=== PATIENT | female | born 1960 | race Caucasian/White ===

== ENCOUNTER 2017-05-04 06:56 | Day surgery (SDC) | payer OTHER ==
[2017-05-03 11:19] VITALS: BMI 25.0
[~2017-05-04 06:56] MED LIST: LACTATED RINGERS 1,000 ML IV SCH; LIDOCAINE 1% 20 ML VIAL (10MG/ML) FOR IV START INTRADERMA PRN
[2017-05-04 07:14] VITALS: TEMP 97.6
[2017-05-04] MEDS ORDERED: LIDOCAINE 1% INJ 10MG/ML (20 ML MDV) ONE (07:43)
[2017-05-04] MEDS ORDERED: GLYCOPYRROLATE 0.2 MG/ML 2 ML VIAL ONE (07:43)
[2017-05-04] MEDS ORDERED: PROPOFOL 10 MG/ML 20 ML VIAL IV ONE (07:43)
--- NOTE | 2017-05-04 08:02 | P.PCN ---
Date of Procedure: 05/04/17 Procedure(s) Performed: Brief history: Patient is a pleasant 57-year-old white female, scheduled for an elective upper endoscopy as well as colonoscopy as a part of evaluation of intermittent abdominal pain and rectal bleeding for the last 2 weeks' duration. Procedure performed: Esophagogastroduodenoscopy with biopsy Colonoscopy Preoperative diagnosis: Abdominal pain Rectal bleeding Anesthesia: [facility] [place] Procedure: After informed consent was obtained from the patient was brought into the endoscopy unit and IV sedation was administered by anesthesia under continuous monitoring. Initially upper endoscopy was done. The Olympus GF 160 video endoscope was inserted inserted into the mouth and esophagus intubated without any difficulty and was gradually advanced into the stomach and duodenum and carefully examined. The bulb had a few erosions and second part of the duodenum appeared normal. The scope was then withdrawn into the stomach adequately insufflated with air and upon careful examination the antrum had mild gastritis and biopsies were done from this area. The body, cardia and fundus appeared normal. The scope was then withdrawn into the esophagus. The GE junction was located at 40 cm to the incisors. It appeared regular with no erythema erosions or ulcerations. Rest of the esophagus appeared normal. Patient tolerated the procedure well. At this time the patient continued to remain sedation. Initial digital rectal examination was normal. Olympus CF 160 video colonoscope was then inserted into the rectum and gradually advanced to the cecum without any difficulty. Careful examination was performed as the scope was gradually being withdrawn. The prep was excellent. The cecum, ascending colon, transverse colon, descending colon, sigmoid colon and rectum appeared normal. Retroflexion was performed in the rectum andsmall internal hemorrhoidsre noted. Patient tolerated the procedure well. Impression: 1. Upper endoscopy revealed mild antral gastritis and duodenitis. 2. Colonoscopy revealed small internal hemorrhoids, but no evidence of colitis or colorectal neoplasia. Recommendations: Findings of this examination were discussed with the patient as well as her family. She was advised to be a high-fiber diet and take fiber supplements a regular basis. She can have a repeat screening colonoscopy in 10 years.
[2017-05-04 08:16] VITALS: BP 112/62; PULSE 77; RESP 15
== END 2017-05-04 09:10 | disposition home or self-care (01) ==
LOC: ORWHC2ENDO 06:56
PROVIDERS: ATTEND Internal Medicine Gastroenterology
DX: K21.9 Gastro-esophageal reflux disease without esophagitis (principal); K29.80 Duodenitis without bleeding; K64.8 Other hemorrhoids
CPT/HCPCS: 88305; 88342; 45378; 43239; J2001; J2704

== ENCOUNTER 2020-07-18 11:11 | Day surgery (SDC) | payer OTHER ==
[2020-07-16 15:58] VITALS: BMI 24.0
--- NOTE | 2020-07-17 17:36 | P.HPOB ---
History of Present Illness H&P Date: 07/17/20 Chief Complaint: Post-menopausal bleeding, endometrial thickening This is a 60 y.o. female, 2, para 2, who presents for dilatation and curettage with hysteroscopy for postmenopausal bleeding and endometrial thickening. She complained of spotting only with wiping that gradually began about 6 years ago. Symptoms occur a couple times a year. She also has some cramping but not associated with the bleeding. She had a normal pap smear recently. Pelvic ultrasound showed uterus measuring 6.6 x 2.8 x 4.4 cm with endometrium 7.7 mm. Neither ovary was visualized. OB Hx: . History of 2 vaginal deliveries. 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 History of endometriosis. Social Hx: . Works as a [employer]. Review of Systems Constitutional: Denies chills, Denies fever Eyes: denies blurred vision, denies pain Ears, nose, mouth and throat: Denies headache, Denies sore throat Cardiovascular: Denies chest pain, Denies shortness of breath Respiratory: Denies cough Gastrointestinal: Denies abdominal pain, Denies diarrhea, Denies nausea, Denies vomiting Genitourinary: Reports abnormal vaginal bleeding, Reports dyspareunia, Reports stress incontinence Menstruation: Reports postmenopausal Musculoskeletal: Reports low back pain, Reports myalgias Integumentary: Denies pruritus, Denies rash Neurological: Denies numbness, Denies weakness Psychiatric: Reports change in libido Hematologic/Lymphatic: Reports easy bruising Past Medical History Past Medical History: No Reported History Additional Past Medical History / Comment(s): pt hs been having blood in stool since 04/12/17 History of Any Multi-Drug Resistant Organisms: None Reported Past Surgical History: Appendectomy, Breast Surgery, Heart Catheterization (04/2020-[facility]), Tubal Ligation Additional Past Surgical History / Comment(s): lt breast biopsy -benign. rt axillary lumpectomy x 3-benign. colonoscopy Past Anesthesia/Blood Transfusion Reactions: No Reported Reaction, Family History of Problems w/ Anesthesia Additional Past Anesthesia/Blood Transfusion Reaction / Comment(s): mom ponv Past Psychological History: No Psychological Hx Reported Smoking Status: Never smoker Past Alcohol Use History: Occasional Past Drug Use History: None Reported - Past Family History Mother Family Medical History: No Reported History Medications and Allergies Home Medications Medication Instructions Recorded Confirmed Type Biotin 5,000 mcg PO DAILY 12/09/20 12/09/20 History Cholecalciferol [Vitamin D3 (25 1,000 unit PO DAILY 07/16/20 07/16/20 History Mcg = 1000 Iu)] Ferrous Sulfate [Feosol] 325 mg PO DAILY 07/16/20 07/18/20 History Multivitamin [Multivitamins Adult 1 each PO DAILY 07/16/20 07/16/20 History Gummies] Allergies Allergy/AdvReac Type Severity Reaction Status Date / Time No Known Allergies Allergy Verified 07/18/20 11:56 Exam Osteopathic Statement: *. No significant issues noted on an osteopathic structural exam other than those noted in the History and Physical/Consult. HEENT: within normal limits Heart: regular rate and rhythm Lungs: clear to auscultation bilaterally Abdomen: soft, non-tender. Pelvic: uterus anteverted, non-tender with 1st degree uterine prolapse and no adnexal masses or tenderness. 2nd degree cystocele and rectocele noted. Extremities: neg. Letty's. Assessment and Plan (1) Postmenopausal bleeding Current Visit: No Status: Acute Code(s): N95.0 - POSTMENOPAUSAL BLEEDING SNOMED Code(s): 30646623 (2) Endometrial thickening on ultrasound Current Visit: No Status: Acute Code(s): R93.89 - ABNORMAL FINDINGS ON DX IMAGING OF OTH BODY STRUCTURES SNOMED Code(s): 346398653 Plan: Proceed with dilatation and curettage with hysteroscopy. I have discussed the risks, benefits, and alternative therapies for the above- mentioned procedure and for both sedation/anesthesia as well as necessary blood products administration, if indicated, as they pertain to this patient. The patient has indicated her understanding and acceptance of the risks and pr ocedures discussed.
[~2020-07-18 11:11] MED LIST changes: +DEXAMETHASONE SOD PHOSPHATE 4 MG/ML 1 ML VIAL IV ONE; +HYDROmorphone 0.5 MG/0.5 ML SYRINGE IVP PRN; -LIDOCAINE 1% 20 ML VIAL (10MG/ML) FOR IV START INTRADERMA PRN; +MIDAZOLAM 2 MG/2 ML VIAL IV PRN; +ONDANSETRON 4 MG/2 ML VIAL IVP ONE; +Pre Op ABX Message 1 EACH MISC MISCELLANE ONE; +SCOPOLAMINE 1.5MG/72HR PATCH TRANSDERM ONE
[2020-07-18] MEDS ORDERED: KETOROLAC 15 MG/ML 1 ML VIAL ONE (12:25)
[2020-07-18] MEDS ORDERED: fentaNYL (PF) 50 MCG/ML 2 ML AMP ONE (12:25)
[2020-07-18] MEDS ORDERED: MIDAZOLAM 2 MG/2 ML VIAL ONE (12:25)
[2020-07-18] MEDS ORDERED: PROPOFOL 10 MG/ML 20 ML VIAL IV ONE (12:25)
[2020-07-18] MEDS ORDERED: LIDOCAINE 1% INJ 10MG/ML (20 ML MDV) ONE (12:25)
--- NOTE | 2020-07-18 12:54 | P.OP ---
Date of Procedure: 07/18/20 Preoperative Diagnosis: postmenopausal bleeding Endometrial thickening Postoperative Diagnosis: same Procedure(s) Performed: dilation and curettage with hysteroscopy Anesthesia: other (mask general) Surgeon: Kristin Mitchell Estimated Blood Loss (ml): 3 Pathology: other (Endometrial curettings) Condition: stable Disposition: same day Indications for Procedure: This is a 60 y.o. female, 2, para 2, who presents for dilatation and curettage with hysteroscopy for postmenopausal bleeding and endometrial thickening. She complained of spotting only with wiping that gradually began about 6 years ago. Symptoms occur a couple times a year. She also has some cramping but not associated with the bleeding. She had a normal pap smear recently. Pelvic ultrasound showed uterus measuring 6.6 x 2.8 x 4.4 cm with endometrium 7.7 mm. Neither ovary was visualized. Operative Findings: uterus is small, anteverted, with no adnexal masses palpated. Grade 2 uterine prolapse is noted along with a cystocele. Upon hysteroscopy, a area atrophic pattern was noted. The right tubal ostia is visualized. The left tubal ostia is not visualized. There is a fairly large polyp originating from the left side of the uterus. Description of Procedure: the patient is taken to the operating room where she is placed in the dorsal lithotomy position. She is prepped and draped in the normal sterile fashion. Her bladder is drained with a catheter and then removed. Examination is under anesthesia. Uterus is found to be small, anteverted, with no adnexal masses palpated. There is grade 2 uterine prolapse noted. A weighted speculum was placed in the patient's vagina and a right angle retractor is used to visualize the cervix. The anterior lip of the cervix is grasped with a single-tooth tenaculum. Cervical os is noted to be stenotic. A hemostat was used to open up the cervix and then the uterus is sounded to 6-1/2 cm. Cervix is gently dilated with Wilson dilators until a hysteroscope could be passed. Hysteroscopy is pe rformed using normal saline. The above noted findings are made and pictures are taken. Next the cervix is gently dilated further and a polyp forceps was introduced. A fairly large polyp was removed. Next a medium-size sharp curet was introduced and sharp curettage was performed until a gritty texture was noted. No further tissue is obtained. Next the single-tooth tenaculum is removed and no bleeding is noted. All instruments are removed from the vagina and the specimen is sent to pathology labeled endometrial curettings. All sponge and needle counts are correct and the patient is taken to recovery room in stable condition.of note the patient did have some redness on her skin where the Betadine had been applied for prep. This was washed off with water prior to taking her to the recovery room.
[2020-07-18 13:06] VITALS: TEMP 97
[2020-07-18 13:17] VITALS: RESP 16
[2020-07-18 14:13] VITALS: BP 110/81; PULSE 60
== END 2020-07-18 14:54 | disposition home or self-care (01) ==
LOC: OR 11:11
PROVIDERS: ATTEND Obstetrics & Gynecology
DX: N84.0 Polyp of corpus uteri (principal); N95.0 Postmenopausal bleeding; R93.89 Abnormal findings on diagnostic imaging of other specified body structures; N81.2 Incomplete uterovaginal prolapse; K92.1 Melena; Z98.51 Tubal ligation status; Z98.890 Other specified postprocedural states
CPT/HCPCS: 88305; 58558; J2250; J1100; J2405; J2001; J3010; J1885; J2704

== ENCOUNTER → 2021-04-24 | Outpatient (CLI) | payer OTHER ==
[2021-04-24 10:01] VITALS: BP 123/77; PULSE 59; RESP 16; TEMP 98.4
--- NOTE | 2021-04-24 10:45 | P.GSHP ---
History of Present Illness H&P Date: 04/24/21 Chief Complaint: lump in left breast Radhika is a 61 year old white female seen in consultation for DR. Post regarding a lump in her left breast. It has been there for about 6 months with no change in size. It is "lightly irritating" at times if she bumps it. [place] [address] sonographic evidence of anything of concern was noted and a diagnostic mammogram [place]. [place] [address] and again no mammographic evidence of any malignancy was noted. She had a prior left breast biopsy about 20 years ago which was benign. She is due for a right breast mammogram. She is not complaining of any nipple discharge or changes. She is not complaining of any trauma or infection. The spot that she feels of any concern today is at 5 oclock in the left breast. Caffiene: 1-2 pills/day of caffeine nicotine: never smoker chocolate: several times/week Family History: mother: pancreatic cancer paternal aunt: breast cancer in 30's of this paternal niece: ? lymphoma as a child Hormonal History: menarche: 11 , breast fed: yes, age at first : 25 menopause: 50's BCP: 10 years hormones: none Red Darden: as a hormonal supplement about 25 years Surgical History: tubaligation appy breast surgery lump removed under left arm; fatty tissue heart cath Medical history: DJD in back Social History: Nicotine: Never smoker Alcohol:occasional durgs: none - Constitutional Constitutional: Denies chills, Denies fever - EENT Comment: getting a cataract Eyes: denies blurred vision, denies pain Ears: deny: decreased hearing, tinnitus Ears, nose, mouth and throat: Denies headache, Denies sore throat - Breasts Breasts: bilateral: as per HPI - Cardiovascular Cardiovascular: Reports shortness of breath - Respiratory Respiratory: Denies cough, Denies 7 - Gastrointestinal Gastrointestinal: Denies abdominal pain, Denies diarrhea, Denies nausea, Denies vomiting - Genitourinary (Female) Genitourinary: Denies dysuria, Denies hematuria - Menstruation Menstruation: Reports postmenopausal - Musculoskeletal Comment: DJD disease back pain Musculoskeletal: Reports myalgias - Integumentary Integumentary: Denies pruritus, Denies rash - Neurological Neurological: Denies numbness, Denies weakness - Psychiatric Psychiatric: Denies anxiety, Denies depression - Endocrine Endocrine: Reports fatigue, Denies weight change - Hematologic/Lymphatic Comment: none - Allergic/Immunologic Allergic/Immunologic: Reports seasonal allergies Past Medical History Past Medical History: No Reported History Additional Past Medical History / Comment(s): pt hs been having blood in stool since 04/12/17 History of Any Multi-Drug Resistant Organisms: None Reported Past Surgical History: Appendectomy, Breast Surgery, Heart Catheterization, Tubal Ligation Additional Past Surgical History / Comment(s): lt breast biopsy -benign. rt axillary lumpectomy x 3-benign. colonoscopy Past Anesthesia/Blood Transfusion Reactions: No Reported Reaction, Family History of Problems w/ Anesthesia Additional Past Anesthesia/Blood Transfusion Reaction / Comment(s): mom ponv Past Psychological History: No Psychological Hx Reported Smoking Status: Never smoker Past Alcohol Use History: Occasional Past Drug Use History: None Reported - Past Family History Mother Family Medical History: No Reported History Medications and Allergies Home Medications Medication Instructions Recorded Confirmed Type Biotin [Biotin Disolve] 5,000 mcg PO DAILY 07/16/20 04/24/21 History Cholecalciferol [Vitamin D3 (25 1,000 unit PO BID 07/16/20 04/24/21 History Mcg = 1000 Iu)] Ferrous Sulfate [Feosol] 65 mg PO DAILY 07/16/20 04/24/21 History Multivitamin [Multivitamins Adult 1 each PO DAILY 07/16/20 04/24/21 History Gummies] Ascorbic Acid [Vitamin C] 500 mg PO BID 04/24/21 04/24/21 History Calcium Carb/Mag Ox/Zinc Sulf 1 each PO BID 04/24/21 04/24/21 History [Ntb-Kki-Cpgj 334-134-5 mg Tab] Cinnamon Bark [Cinnamon] 500 mg PO BID 04/24/21 04/24/21 History Red Darden 375 mg PO DAILY 04/24/21 04/24/21 History Total Cleansing Uric Acid 1 tab PO DAILY 04/24/21 04/24/21 History Allergies Allergy/AdvReac Type Severity Reaction Status Date / Time No Known Allergies Allergy Verified 04/24/21 10:01 Surgical - Exam Vital Signs Temp Pulse Resp BP Pulse Ox 98.4 F 59 L 16 123/77 99 04/24/21 09:58 04/24/21 09:58 04/24/21 09:58 04/24/21 09:58 04/24/21 09:58 BMI 25.6 - General well developed, well nourished, no distress - Eyes normal ocular movement - Neck trachea midline - Respiratory normal respiratory effort, clear to auscultation - Cardiovascular Rhythm: regular Heart Sounds: normal: S1, S2 - Abdomen Abdomen: soft, non tender, no guarding, no rigid, no rebound - Integumentary normal turgor - Neurologic no disoriented, no combative - Musculoskeletal normal gait - Psychiatric oriented to time, oriented to person, oriented to place, speech is normal Breast Exam: BRA: 38B inspection: Well-healed scar left breast from prior biopsy, grade 2 ptosis bilateral Palpation: Right breast: Multiple positional exam fibrocystic changes, no dominant masses or nodules of concern Right axilla: No adenopathy of concern Left breast: Well-healed scar from prior biopsy, there is some nodularity at the border of lesion was prior removed which is consistent with scar tissue no dominant masses or nodules of concern Left axilla: No adenopathy of concern Results Left breast mammogram and ultrasound results reviewed Assessment and Plan Assessment: Impression: 1. Palpable change in left breast the patient has noted, appears to be consistent with scar tissue from prior left breast lumpectomy 2. Recent left breast mammogram and ultrasound no specific lesions of concern 3. Patient is not had a right breast mammogram in approximately a year and a half 4. Degenerative disc disease with back pain Plan: 1. Right breast mammogram 2. Patient is given the option of an FNA of the area of concern in the left breast versus watchful waiting 3. Obtain pathology report from prior left breast biopsy 4. Repeat ultrasound of the left breast in 6 months CC: Dr. Post
== END ==
LOC: WWCWWP 09:48
PROVIDERS: ATTEND Surgery
DX: N64.89 Other specified disorders of breast (principal); M51.36 Other intervertebral disc degeneration, lumbar region

== ENCOUNTER 2022-12-31 10:07 | Day surgery (SDC) | payer MEDICAID ==
[2022-12-29 12:16] VITALS: BMI 24.9
[~2022-12-31 10:07] MED LIST changes: -DEXAMETHASONE SOD PHOSPHATE 4 MG/ML 1 ML VIAL IV ONE; -HYDROmorphone 0.5 MG/0.5 ML SYRINGE IVP PRN; -MIDAZOLAM 2 MG/2 ML VIAL IV PRN; -ONDANSETRON 4 MG/2 ML VIAL IVP ONE; -Pre Op ABX Message 1 EACH MISC MISCELLANE ONE; -SCOPOLAMINE 1.5MG/72HR PATCH TRANSDERM ONE
[2022-12-31 10:35] VITALS: TEMP 97.1
[2022-12-31] MEDS ORDERED: PROPOFOL 10 MG/ML 20 ML VIAL IV ONE (10:56)
--- NOTE | 2022-12-31 11:19 | P.PCN ---
Date of Procedure: 12/31/22 Procedure(s) Performed: BRIEF HISTORY: Patient is a 62-year-old pleasant female scheduled for an elective colonoscopy as a part of evaluation change in bowel habits for the last 6 months duration. PROCEDURE PERFORMED: Colonoscopy. PREOPERATIVE DIAGNOSIS: Change in bowel habits. IV sedation per Anesthesia. PROCEDURE: After informed consent was obtained, the patient, was brought into the endoscopy unit. IV sedation was administered by Anesthesia under continuous monitoring. Digital rectal examination was normal. Initially the Olympus CF-160 flexible video colonoscope was then inserted in the rectum, gradually advanced into the cecum without any difficulty. Careful examination was performed as the scope was gradually being withdrawn. Ileocecal valve and the appendiceal orifice were visualized and appeared normal. Prep was excellent. Mucosa of the cecum, ascending colon, transverse colon, descending colon, sigmoid colon, and rectum appeared normal. Scattered sigmoid diverticulosis Retroflexion was performed in the rectum and no lesions were seen. The patient tolerated the procedure well. IMPRESSION: Normal-appearing colon from rectum to cecum with no evidence of colorectal neoplasia. Scattered sigmoid diverticulosis. RECOMMENDATIONS: Findings of this examination were discussed with the patient as well as a family. She was advised to have a repeat screening colonoscopy in 10 years..
[2022-12-31 11:30] VITALS: RESP 16
[2022-12-31 11:50] VITALS: BP 110/79; PULSE 70
== END 2022-12-31 11:45 | disposition home or self-care (01) ==
LOC: ORWHC2ENDO 10:07
PROVIDERS: ATTEND Internal Medicine Gastroenterology
DX: K57.30 Diverticulosis of large intestine without perforation or abscess without bleeding (principal); Z90.49 Acquired absence of other specified parts of digestive tract; Z98.51 Tubal ligation status; Z98.890 Other specified postprocedural states; Z79.899 Other long term (current) drug therapy
CPT/HCPCS: 45378; J2704

== ENCOUNTER → 2023-08-17 | Outpatient (CLI) | payer MEDICAID ==
--- NOTE | 2023-08-24 18:05 | CT ---
EXAMINATION TYPE: CT soft tissue neck w con CT DLP: 428.3 mGycm, Automated exposure control for dose reduction was used. DATE OF EXAM: 08/17/2023 10:27 AM COMPARISON: None INDICATION: Patient age:Female; 63 years old; Reason for study: R05.9 COUGH, UNSPECIFIED; PHH. COMPARISON: None. TECHNIQUE: Standard enhanced CT of the neck following intravenous administration of 100 cc of Isovue 300. Axial sections with coronal and sagittal reformats were obtained. One or more CT dose reduction strategies were utilized during this examination. Total DLP administered was 428.3 mGycm. FINDINGS: Head: The orbits, paranasal sinuses and visualized portions of the brain are grossly unremarkable. Suprahyoid Neck: Dental work artifact causes some limited evaluation of the oral cavity and oropharyn x. The oropharynx, oral cavity, parapharyngeal and retropharyngeal spaces appear clear and symmetric. The nasopharynx is patent. There is mild nasal septal deviation towards the left anteriorly and to t he midportion. Infrahyoid Neck: The larynx, hypopharynx, and supraglottic area are clear and symmetric. Epiglottis is not thickened. Parotid Glands: Unremarkable. Submandibular Glands: Unremarkable. Lymph Nodes: Multiple nonenlarged lymph nodes are identified bilaterally along the anterior and poste rior chains. No bulky or necrotic adenopathy. Vascular Structures: Arterial structures are patent without significant atherosclerotic disease or he modynamically significant stenosis. Major venous structures are unremarkable. Musculoskeletal: No acute osseous pathology. Mild degenerative changes of the cervical spine with mil d canal and neural foraminal stenoses at the C5-6 and C6-C7 levels. Straightening and slight reversal of the normal cervical lordosis and trace anterolisthesis C4 on C5, appears degenerative. Thoracic Inlet: Included lung apices show no acute infiltrate or pneumothorax. Mild chronic senescent changes. Airway is patent. Thyroid: Unremarkable Other Findings: Radiodense marker placed over the right anterior neck, presumably the site of reporte d abnormality, overlies the SCM which appears normal and symmetric compared to the contralateral side . No mass, adenopathy or other abnormality is seen in this region. IMPRESSION: 1. No evidence of mass or adenopathy in the neck. 2. Airway is patent.
== END | disposition home or self-care (01) ==
LOC: RADCTMAIN 09:52
PROVIDERS: ATTEND Otolaryngology
DX: R13.10 Dysphagia, unspecified (principal); R05.9 Cough, unspecified
CPT/HCPCS: 70491; Q9967

== ENCOUNTER → 2023-08-24 | Outpatient (CLI) | payer MEDICAID ==
--- NOTE | 2023-08-24 11:14 | FL ---
EXAMINATION TYPE: FL barium swallow DATE OF EXAM: 08/24/2023 CLINICAL HISTORY: Patient feels lump in throat when swallowing TECHNIQUE: A double contrast esophagram is performed utilizing air and barium. A total of 39 second s of fluoroscopic time was utilized during procedure and 27 images obtained. Total dose area product (DAP) in uGy*m?, mGy*cm? (or similar) No DAP report. COMPARISON: None FINDINGS: The esophagus shows normal motility and emptying into the stomach. No evidence of hiatal h ernia or stricture noted. No significant gastroesophageal reflux was seen during real time performanc e of this study. IMPRESSION: No significant abnormality is seen to account for patient's symptoms.
== END | disposition home or self-care (01) ==
LOC: RADXRMAIN 09:24
PROVIDERS: ATTEND Otolaryngology
DX: R13.10 Dysphagia, unspecified (principal); R05.9 Cough, unspecified
CPT/HCPCS: 74220

== ENCOUNTER → 2024-02-01 | Outpatient (CLI) | payer MEDICAID ==
--- NOTE | 2024-02-01 15:58 | US ---
EXAMINATION TYPE: US thyroid st tissue head/neck DATE OF EXAM: 02/01/2024 COMPARISON: CT neck 08/17/2023 CLINICAL INDICATION: Female, 64 years old with history of R22.1 LOCALIZED SWELLING, MASS AND LUMP, NE CK; Lump right neck x 3-5 years; difficulty swallowing GLAND SIZE: Right Lobe: 4.9 x 1.5 x 1.5 cm Overall Parenchyma: homogeneous Left Lobe: 5.0 x 1.6 x 1.7 cm Overall Parenchyma: homogeneous Isthmus Thickness: 0.2 cm NODULES RIGHT: # of nodules measured on right: 1 1. 0.5 X 0.5 x 0.5 cm, lower medial, spongiform, hypoechoic nodule, which is wider than tall, with smooth margins, without echogenic foci. TR 2. Prior size: no prior LEFT: # of nodules measured on left: 1 1. 1.3 X 0.8 x 1.1 cm, lower mid, mixed cystic and solid, isoechoic nodule, which is wider than heather l, with smooth margins, without echogenic foci. TR 2. Prior size: no prior ISTHMUS: # of nodules measured in the isthmus: 0 Bilateral neck scanned, lymph nodes noted bilaterally No ultrasound evidence of abnormality within the right lateral neck. IMPRESSION: 1. Bilateral thyroid nodules as described above. 2. No ultrasound evidence of abnormality within the right lateral neck. ACR TI-RADS LEVEL: TR-RADS 2 - Not Suspicious: No FNA *Highest TI-RADS level nodule reported
== END | disposition home or self-care (01) ==
LOC: RADUSWWP 10:16
PROVIDERS: ATTEND Otolaryngology
DX: E04.2 Nontoxic multinodular goiter (principal); R22.1 Localized swelling, mass and lump, neck; R13.10 Dysphagia, unspecified
CPT/HCPCS: 76536

== ENCOUNTER → 2024-10-24 | Outpatient (CLI) | payer MEDICAID ==
--- NOTE | 2024-10-24 08:11 | US ---
EXAMINATION TYPE: US abdomen complete DATE OF EXAM: 10/24/2024 COMPARISON: NONE CLINICAL INDICATION: Female, 64 years old with history of R14.0 ABDOMINAL DISTENSION (GASEOUS); gaseo us bloating. TECHNIQUE: Grayscale and color Doppler imaging of the abdomen was performed. FINDINGS: EXAM MEASUREMENTS: Liver Length: 13.1 cm Gallbladder Wall: .2 cm CBD: .5 cm, color Doppler imaging was utilized to isolate the common bile duct for measurement. Spleen: 10.4 cm Right Kidney: 9.5 x 4.3 x 4.3 cm Left Kidney: 10 x 4.0 x 3.5 cm CHAMPION OF SUSTAINABLE DESIGN NOTES: Pancreas: wnl Liver: wnl, no dilated ducts, masses or cysts. Gallbladder: wnl Evidence for sonographic Grullon's sign: no CBD: wnl Spleen: wnl Right Kidney: wnl, No hydronephrosis, calculi or masses seen Left Kidney: wnl, No hydronephrosis, calculi or masses seen Upper IVC: wnl Abd Aorta: wnl The liver is homogenous. The intrahepatic portion of the IVC and proximal abdominal aorta are within normal limits. There is no evidence of cholelithiasis. Common bile duct is unremarkable. The visu alized portions of the pancreas are homogenous. The spleen is unremarkable. Kidneys are symmetric a nd free of hydronephrosis. No renal lesions are seen. IMPRESSION: No discrete abnormality. [facility], , 10/24/2024 8:09 AM
== END | disposition home or self-care (01) ==
LOC: RADUSWWP 07:16
PROVIDERS: ATTEND Internal Medicine Gastroenterology
DX: R14.0 Abdominal distension (gaseous) (principal)
CPT/HCPCS: 76700

== ENCOUNTER → 2024-11-30 | Day surgery (SDC) | payer MEDICAID ==
[~2024-11-30] MED LIST changes: -LACTATED RINGERS 1,000 ML IV SCH; +LIDOCAINE 1% INJ 10MG/ML (20 ML MDV) ONE; +PROPOFOL 10 MG/ML 20 ML VIAL IV ONE
[2024-11-30] MEDS: LACTATED RINGERS 1,000 ML IV ONE (11:57)
[2024-11-30 12:10] VITALS: RESP 16; TEMP 97.5
[2024-11-30] MEDS: LACTATED RINGERS 1,000 ML IV SCH (12:10)
--- NOTE | 2024-11-30 12:57 | P.PCN ---
Date of Procedure: 11/30/24 Procedure(s) Performed: BRIEF HISTORY: Patient is a 64-year-old, pleasant, white female discomfort of endoscopies upon evaluation of excessive bleeding for the last 2 years duration.. She denies any heartburn. She was treated with Protonix 40 mg daily for a few months with no help. PROCEDURE PERFORMED: Esophagogastroduodenoscopy with biopsy. PREOPERATIVE DIAGNOSIS: Excessive belching. IV sedation per anesthesia. PROCEDURE: After informed consent was obtained, the patient was brought into the endoscopy unit. IV sedation was administered by Anesthesia under continuous monitoring. Initially the Olympus GIF-140 video endoscope was inserted into the mouth. Esophagus intubated without any difficulty. It was gradually advanced into the stomach and duodenum and carefully examined. The bulb and the second part of the duodenum appeared normal. The scope at this time was withdrawn to the stomach, adequately insufflated with air, and upon careful examination, mucosa of the antrum, had linear areas of erythema consistent with gastritis and biopsies were done from this area. Mucosa of the body, cardia and the fundus appeared normal. The scope was then withdrawn into the esophagus. The GE junction was located at 39 cm from the incisors. The esophagus appeared normal. There were no erosions or ulcerations seen and the patient tolerated the procedure well. IMPRESSION: 1. Mild antral gastritis. 2. No evidence of esophagitis or peptic ulcer disease. RECOMMENDATIONS: The findings of this examination were discussed with the patient as well as her family.. She was advised to follow the biopsy results. Follow-up in the office in 2 to 3 weeks.
[2024-11-30 13:19] VITALS: BP 123/74; PULSE 79
== END ==
LOC: ORWHC2ENDO 11:38
PROVIDERS: ATTEND Internal Medicine Gastroenterology
DX: K29.50 Unspecified chronic gastritis without bleeding (principal); K20.90 Esophagitis, unspecified without bleeding
CPT/HCPCS: 88305; 43239; J2003; J2704; 88342

== ENCOUNTER → 2025-02-13 | Outpatient (CLI) | payer MEDICAID ==
--- NOTE | 2025-02-13 11:36 | US ---
EXAMINATION TYPE: US thyroid st tissue head/neck DATE OF EXAM: 02/13/2025 COMPARISON: 02/01/2024 CLINICAL INDICATION: Female, 65 years old with history of E04.2 MULTINODULAR GOITER; TECHNIQUE: Grayscale and color Doppler imaging of the thyroid gland. FINDINGS: GLAND SIZE: Right Lobe: 4.0x1.5x1.7 cm Overall Parenchyma: heterogeneous Left Lobe: : 4.2x1.7x1.9cm Overall Parenchyma: heterogeneous Isthmus Thickness: 0.4 cm NODULES RIGHT: # of nodules measured on right: 2 1. 0.6 X 0.4 x 0.5 cm, lower mid, Prior size: 0.5 x 0.5 x 0.5 cm TIRADS Score: 3 TIRADS Category 3: Composition: Mixed cystic and solid (1 point). Echogenicity: Hypoechoic (2 points). Shape: Wider than tall (0 points). Margin: Smooth (0 points). Echogenic foci: None or large comet-tail artifacts (0 points) Recommendation: If >2.5cm: FNA; If >1.5cm: Follow up at 1,3,5 years 2. 0.3 X 0.3 x 0.3 cm, lower lateral, . TIRADS Score: 0 TIRADS Category 1: Composition: Cystic or almost completely cystic (0 points). Recommendation: No FNA LEFT: # of nodules measured on left: 1 1. 1.0 X 1.2 x 0.9 cm, lower mid, Prior size: 1.3 x 0.7 x 1.1 cm TIRADS Score: 3 TIRADS Category 3: Mildly Suspicious Composition: Solid or almost completely solid (2 points). Echogenicity: Hyperechoic or isoechoic (1 point). Shape: Wider than tall (0 points). Margin: Smooth (0 points). Echogenic foci: None or large comet-tail artifacts (0 points) Recommendation: If >2.5cm: FNA; If >1.5cm: Follow up at 1,3,5 years ISTHMUS: # of nodules measured in the isthmus: 0 Bilateral neck scanned, no evidence of lymphadenopathy. IMPRESSION: Thyroid nodules that meet criteria for follow-up. Highest TI-RADS level nodule reported: 2017 ACR TI-RADS LEVEL: TI-RADS 3 - Mildly Suspicious: Follow if > 1.5 cm, FNA if > 2.5 cm TI-RADS assessment score and recommendation for follow-up based on appropriate scoring and treatment protocols. TR1 Benign No FNA TR2 Not suspicious No FNA TR3: If nodule size is ? 2.5 cm, FNA is recommended. If nodule size is ? 1.5 cm, follow-up imaging at 1, 3, and 5 years is recommended. TR4: If nodule size is ? 1.5 cm, FNA is recommended. If nodule size is ? 1.0 cm, follow-up imaging at 1, 2, 3, and 5 years is recommended. TR5: If nodule size is ? 1.0 cm, FNA is recommended. If nodule size is ? 0.5 cm, annual follow-up for up to 5 years is recommended. TR 1 thyroid nodules have a 0.3 % risk of malignancy. TR 2 thyroid nodules have a 1.5 % risk of malignancy. TR 3 thyroid nodules have a 4.8 % risk of malignancy. TR 4 thyroid nodules have a 9.1 % risk of malignancy. TR 5 thyroid nodules have a 35 % risk of malignancy. [email or web address], , 02/13/2025 11:34 AM
== END | disposition home or self-care (01) ==
LOC: RADUSWWP 10:28
PROVIDERS: ATTEND Internal Medicine
DX: E04.2 Nontoxic multinodular goiter (principal)
CPT/HCPCS: 76536